=== PATIENT | male | born 1995 | race Caucasian/White ===

== ENCOUNTER 2016-12-18 20:45 | Emergency (ER) | payer BC ==
[2016-12-18] MEDS ORDERED: MAALOX/LIDO/HYOSC GI COCKTAIL 55 ML BOTTLE PO ONE (21:03)
--- NOTE | 2016-12-18 21:05 | EDPHY ---
H & P Time Seen by Provider: 12/18/16 20:57 HPI/ROS: CHIEF COMPLAINT: Epigastric pain HISTORY OF PRESENT ILLNESS: 21-year-old male presents a one-day history of epigastric pain. Onset moderate epigastric pain yesterday. The pain has been constant and is described as sharp and stabbing. No radiation of pain and no other associated symptoms. The pain is aggravated with eating. Occasional ibuprofen use. REVIEW OF SYSTEMS: Constitutional: No fever, no chills Eyes: No visual changes ENT: No sore throat Respiratory: No cough, no shortness of breath Cardiac: No chest pain Gastrointestinal: No nausea, no vomiting Genitourinary: No hematuria, no dysuria Musculoskeletal: No leg pain or swelling Skin: No rash Neurological: No headache, no weakness Psychiatric: No depression Past Medical/Surgical History: Migraine headaches Social History: No recent alcohol Smoking Status: Never smoked Physical Exam: General Appearance: Alert, pleasant Eyes: Pupils equal and round, no conjunctival pallor or injection ENT, Mouth: Mucous membranes moist Neck: Normal inspection Respiratory: Lungs are clear to auscultation Cardiovascular: Regular rate and rhythm Gastrointestinal: Abdomen is soft, epigastric tenderness Neurological: A&O, nonfocal, normal gait Skin: Warm and dry, no rash Extremities: Nontender, no pedal edema Psychiatric: Mood and affect normal Constitutional: Initial Vital Signs Temperature (C) 37 C 12/18/16 20:46 Heart Rate 75 12/18/16 20:46 Respiratory Rate 17 12/18/16 20:46 Blood Pressure 127/84 H 12/18/16 20:46 O2 Sat (%) 97 12/18/16 20:46 O2 Delivery Mode Room Air Allergies/Adverse Reactions: No Known Allergies Allergy (Unverified 12/18/16 20:46) Home Medications: Medication Instructions Recorded Hydrocodone/APAP 5/325 [Rewey 1 - 2 tab PO Q4H PRN #10 tab 12/18/16 5/325] Ondansetron Odt [Zofran Odt 4 mg 4 mg PO Q4 PRN #6 tab 12/18/16 (*)] Pantoprazole Sodium [Protonix 40mg 40 mg PO DAILY #20 tab 12/18/16 (*)] Medical Decision Making ED Course/Re-evaluation: GI cocktail given. Better after GI cocktail, but then the pain returned. Abdominal exam remains unchanged. Protonix 40 mg orally given. I will discharge him with instructions for peptic ulcer disease. He will eat a bland diet. Will follow up with primary care or GI later this week. Abdominal pain precautions given. Differential Diagnosis: Differential diagnosis includes though it is not limited to appendicitis, cholecystitis, diverticulitis, pyelonephritis, bowel perforation, small bowel obstruction. - Data Points Laboratory Results: Laboratory Results 12/18/16 21:05 12/18/16 21:05 12/18/16 21:05 WBC 7.55 10^3/uL (3.80-9.50) RBC 5.85 10^6/uL (4.40-6.38) Hgb 17.3 g/dL (13.7-17.5) Hct 50.1 % (40.0-51.0) MCV 85.6 fL (81.5-99.8) MCH 29.6 pg (27.9-34.1) MCHC 34.5 g/dL (32.4-36.7) RDW 12.7 % (11.5-15.2) Plt Count 271 10^3/uL (150-400) MPV 10.5 fL (8.7-11.7) Neut % (Auto) 50.8 % (39.3-74.2) Lymph % (Auto) 36.4 % (15.0-45.0) [place] % (Auto) 10.1 % (4.5-13.0) Eos % (Auto) 1.7 % (0.6-7.6) Baso % (Auto) 0.7 % (0.3-1.7) Nucleat RBC Rel Count 0.0 % (0.0-0.2) Absolute Neuts (auto) 3.84 10^3/uL (1.70-6.50) Absolute Lymphs (auto) 2.75 10^3/uL (1.00-3.00) Absolute Monos (auto) 0.76 10^3/uL (0.30-0.80) Absolute Eos (auto) 0.13 10^3/uL (0.03-0.40) Absolute Basos (auto) 0.05 10^3/uL (0.02-0.10) Absolute Nucleated RBC 0.00 10^3/uL (0-0.01) Immature Gran % 0.3 % (0.0-1.1) Immature Gran # 0.02 10^3/uL (0.00-0.10) Sodium 146 H mEq/L (134-144) Potassium 4.2 mEq/L (3.5-5.2) Chloride 103 mEq/L (97-110) Carbon Dioxide 28 mEq/l (22-31) Anion Gap 15 mEq/L (8-16) BUN 16 mg/dL (7-23) Creatinine 1.1 mg/dL (0.7-1.3) Estimated GFR > 60 Glucose 97 mg/dL (70-100) Calcium 10.4 mg/dL (8.5-10.4) Total Bilirubin 0.6 mg/dL (0.1-1.4) Conjugated Bilirubin 0.3 mg/dL (0.0-0.5) Unconjugated Bilirubin 0.3 mg/dL (0.0-1.1) AST 26 IU/L (17-59) ALT 30 IU/L (21-72) Alkaline Phosphatase 53 IU/L (38-126) Total Protein 7.5 g/dL (6.3-8.2) Albumin 4.7 g/dL (3.5-5.0) Lipase 111.0 IU/L (23-300) Medications Given: Discontinued Medications Miscellaneous Medication (Gi Cocktail) 45 ml PO EDNOW ONE Stop: 12/18/16 21:04 Last Admin: 12/18/16 21:11 Dose: 45 ml Departure - Departure Disposition: Home, Routine, Self-Care Clinical Impression: Acute gastritis Qualifiers: Gastritis type: other gastritis Gastritis bleeding: without bleeding Qualifier Code: (K29.00) Acute gastritis without bleeding Condition: Good Instructions: Peptic Ulcer (ED), Hydrocodone/Acetaminophen (By mouth), Ondansetron (By mouth) Additional Instructions: Take Mylanta 30 minutes before meals and at bedtime. Eat a bland diet. Avoid spicy and fatty foods. Return for worsening symptoms or any concerns. Referrals: Koko Gomez MD [Medical Doctor] - 3-4 days, if not improved Prescriptions: Hydrocodone/APAP 5/325 [Rewey 5/325] 1 - 2 tab PO Q4H PRN #10 tab PRN Reason: Pain, Moderate Pantoprazole Sodium [Protonix 40mg (*)] 40 mg PO DAILY #20 tab Ondansetron Odt [Zofran Odt 4 mg (*)] 4 mg PO Q4 PRN #6 tab PRN Reason: Nausea
[2016-12-18 21:22] LABS: % IMMATURE GRANULYOCYTES 0.3 % (0.0-1.1); ABSOLUTE IMMATURE GRANULOCYTES 0.02 10^3/uL (0.00-0.10); ADD DIFF? NO; ADD MORPH? NO; ADD SCAN? NO; ATYPICAL LYMPHOCYTE FLAG 30 (0-99); FRAGMENT RBC FLAG 10 (0-99); HEMATOCRIT 50.1 % (40.0-51.0); HEMOGLOBIN 17.3 g/dL (13.7-17.5); LEFT SHIFT FLG 0 (0-99); LIPEMIA HEMOLYSIS FLAG 90 (0-99); MEAN CELL HEMOGLOBIN 29.6 pg (27.9-34.1); MEAN CELL HEMOGLOBIN CONCENTR. 34.5 g/dL (32.4-36.7); MEAN CELL VOLUME 85.6 fL (81.5-99.8); MEAN PLATELET VOLUME 10.5 fL (8.7-11.7); PLATELET CLUMPS FLAG 10 (0-99); PLATELET COUNT 271 10^3/uL (150-400); RED BLOOD CELL COUNT 5.85 10^6/uL (4.40-6.38); RED CELL DISTRIBUTION WIDTH 12.7 % (11.5-15.2)
[2016-12-18 21:46] LABS: ALANINE AMINOTRANSFERASE 30 IU/L (21-72); ALBUMIN 4.7 g/dL (3.5-5.0); ALKALINE PHOSPHATASE 53 IU/L (38-126); ANION GAP 15 mEq/L (8-16); ASPARTATE AMINOTRANSFERASE 26 IU/L (17-59); BILIRUBIN,TOTAL 0.6 mg/dL (0.1-1.4); BILIRUBIN-CONJUGATED 0.3 mg/dL (0.0-0.5); BILIRUBIN-UNCONJUGATED 0.3 mg/dL (0.0-1.1); CALCIUM 10.4 mg/dL (8.5-10.4); CARBON DIOXIDE 28 mEq/l (22-31); CHLORIDE 103 mEq/L (97-110); CREATININE 1.1 mg/dL (0.7-1.3); GLOMERULAR FILTRATION RATE > 60; GLUCOSE 97 mg/dL (70-100); POTASSIUM 4.2 mEq/L (3.5-5.2); SODIUM 146 mEq/L (134-144); TOTAL PROTEIN 7.5 g/dL (6.3-8.2)
[2016-12-18] MEDS ORDERED: HYDROCOD/APAP 5/325 PREPACK#6 BTL TAKEHOME ONE (22:15)
[2016-12-18] MEDS ORDERED: ONDANSETRON 4MG PREPACK#2 BTL TAKEHOME ONE (22:15)
[2016-12-18 22:36] VITALS: BP 112/92; PULSE 83; RESP 18; TEMP 98.2; O2SAT 96
== END 2016-12-18 22:36 | disposition home or self-care (01) ==
DX: K29.00 Acute gastritis without bleeding (principal)

== ENCOUNTER → 2017-01-17 | Outpatient (CLI) | payer BC | LOC: BRMIMAGING 14:23 | PROVIDERS: ATTEND Physician Assistant | DX: R10.13 Epigastric pain (principal) | CPT/HCPCS: 76700-PO ==

== ENCOUNTER → 2017-01-31 | Outpatient (CLI) | payer BC, OTHER | LOC: FIMAGING 08:55 | PROVIDERS: ATTEND Physician Assistant | DX: R10.13 Epigastric pain (principal) | CPT/HCPCS: 78264; A9541 ==

== ENCOUNTER → 2017-03-08 | Outpatient (CLI) | payer BC | LOC: FIMAGING 09:36 | PROVIDERS: ATTEND Internal Medicine Gastroenterology | DX: R10.13 Epigastric pain (principal) | CPT/HCPCS: A9537 ==

== ENCOUNTER → 2017-03-22 | Outpatient (CLI) | payer BC | LOC: FIMAGING 10:35 | PROVIDERS: ATTEND Family Medicine | DX: R11.0 Nausea (principal); R42 Dizziness and giddiness; Z87.820 Personal history of traumatic brain injury; N31.9 Neuromuscular dysfunction of bladder, unspecified; H74.8X1 Other specified disorders of right middle ear and mastoid ==

== ENCOUNTER → 2017-04-18 | Outpatient (CLI) | payer BC | LOC: FIMAGING 07:23 | PROVIDERS: ATTEND Family Medicine | DX: M54.2 Cervicalgia (principal); R51 Headache; R42 Dizziness and giddiness; R11.0 Nausea; Z87.820 Personal history of traumatic brain injury ==

== ENCOUNTER → 2017-05-06 | Outpatient (CLI) | payer BC ==
[~2017-05-06] MED LIST: GADOBUTROL 10 ML VIAL IVP ONE
== END ==
LOC: FIMAGING 08:29
PROVIDERS: ATTEND Psychiatry & Neurology Neurology
DX: G44.309 Post-traumatic headache, unspecified, not intractable (principal); N31.9 Neuromuscular dysfunction of bladder, unspecified; R10.13 Epigastric pain; Q76.49 Other congenital malformations of spine, not associated with scoliosis
CPT/HCPCS: A9585

== ENCOUNTER 2017-06-11 14:03 | Emergency (ER) | payer BC ==
[2017-06-11 14:15] VITALS: RESP 16
--- NOTE | 2017-06-11 14:38 | EDPHY ---
H & P Stated Complaint: may have passed out last week/? hit head/now with clements/nausea HPI/ROS: CHIEF COMPLAINT: Fall, headache, vomiting HISTORY OF PRESENT ILLNESS: Patient complains of headache after falling down half a flight of stairs on Sunday. He slipped and fell, sliding down half a flight on a carpeted surface. He hit a wall. He is not entirely sure what happened because fall. He is mildly amnestic to events. Since that time he has had moderate to severe headache on the back of his head that radiates to the front. He also had nausea and vomiting. Some occasional visual disturbances. Severe pain even when blinking. No active vomiting at this time. No neck pain or stiffness. No numbness or tingling. No incontinence of bowel or bladder. Patient has had ongoing headaches and systematic complaints that he is being worked up for with his primary care physician, Urology and Neurology. He feels that these have been exacerbated but he is here specifically for the fall and the headache. No other associated complaints or modifying factors. REVIEW OF SYSTEMS: Ten systems reviewed and are negative unless otherwise noted in the HPI PAST MEDICAL HISTORY: Reviewed SOCIAL HISTORY: Nonsmoker. Lives here in [place]. FAMILY HISTORY: Noncontributory EXAMINATION General Appearance: Alert, no distress Head: normocephalic, atraumatic. No Mueller sign. No raccoon eyes. No hematoma Eyes: Pupils equal and round, no conjunctival pallor or injection. No nystagmus. EOMs intact. ENT, Mouth: Mucous membranes moist. Airway patent Neck: Normal inspection, supple, non-tender. No crepitus, step-off or deformity. Painless range of motion all planes Respiratory: Lungs are clear to auscultation Cardiovascular: Regular rate and rhythm. No murmur. Pulses intact distally Gastrointestinal: Abdomen is soft and nontender Back: non-tender, no bony abnormalities Neurological: GCS 15. Strength is symmetric in all 4 limbs. No pronator drift. No dysmetria. A&O, nonfocal, normal gait Skin: Warm and dry, no rash. No lacerations abrasions or contusions Extremities: Nontender, no pedal edema Psychiatric: Mood and affect normal DIFFERENTIAL DIAGNOSES: Including but not limited to post concussion, intracranial hemorrhage, subdural hematoma, epidural hematoma, contusion, edema, sprain, strain MDM: 2:35 p.m. Headache after falling down a half a flight of stairs on Sunday. He has had visual disturbances and significant pain with nausea and vomiting. He has no focal findings on examination. No neck pain or meningismus. I have ordered CT scan of the head given the mechanism the persistent of his symptoms. He is awake alert no acute distress. 3:15 p.m. Notified by radiologist Dr. Smallwood. No acute findings on the CT scan of the head from today 3:30 p.m. I have re-evaluated the patient. He is resting comfortably at this time. Still has headache but no vomiting. Remains neuro intact. Discharged patient home with symptomatic instructions. He is to follow up with primary care physician and neurologist as he is well established. He is requesting that I refill his Ambien as he ran out of it and has been unable to contact his primary care physician. The physicians out of town until tomorrow. I informed him that I will provide short course of the medication till he can follow up with her. Discharged home stable condition. Follow with existing physicians for further care. Return to ER precautions discussed. SUPERVISION: Patient was evaluated in conjunction with the supervising physician. Please see their note for details. Source: Patient, Old records Exam Limitations: No limitations - Personal History Current Tetanus/Diphtheria Vaccine: Yes - Medical/Surgical History Hx Asthma: No Hx Chronic Respiratory Disease: No Hx Diabetes: No Hx Cardiac Disease: No Hx Renal Disease: No Hx Cirrhosis: No Hx Alcoholism: No Hx HIV/AIDS: No Hx Splenectomy or Spleen Trauma: No Other PMH: ?chiari malformation - Social History Smoking Status: Never smoked Constitutional: Initial Vital Signs Temperature (C) 98.4 F 06/11/17 14:12 Heart Rate 74 06/11/17 14:12 Respiratory Rate 16 06/11/17 14:12 Blood Pressure 137/74 H 06/11/17 14:12 O2 Sat (%) 96 06/11/17 14:12 O2 Delivery Mode Room Air Allergies/Adverse Reactions: No Known Allergies Allergy (Verified 06/11/17 14:10) Home Medications: Medication Instructions Recorded Acifex 06/11/17 Ambien 06/11/17 Carafate 1 GM (*) 06/11/17 Librax (*) 06/11/17 Ondansetron Odt [Zofran Odt 4 mg 4 mg PO Q6 PRN #12 tab 06/11/17 (*)] Pantoprazole Sodium 06/11/17 Zolpidem Tartrate [Ambien 10 mg] 10 mg PO HS #5 tablet 06/11/17 Medical Decision Making - Diagnostics Imaging Results: Imaging Impressions Head CT 06/11/17 14:34 Impression: There is no acute abnormality identified on this unenhanced CT evaluation. If there is further clinical concern regarding the patient's symptoms, MR imaging is suggested, if not otherwise contraindicated. Findings were discussed with Richie Turner PA-C, at 15:14, on 06/11/2017. Departure - Departure Disposition: Home, Routine, Self-Care Clinical Impression: Closed head injury with concussion Qualifiers: Encounter type: initial encounter Loss of consciousness presence/duration: with LOC of 30 min or less Qualified Code(s): S06.0X1A - Concussion with loss of consciousness of 30 minutes or less, initial encounter Condition: Good Instructions: Head Injury (ED), Concussion (ED) Additional Instructions: 1. Medications as discussed as needed 2. Follow up with her existing primary care physician and neurologist for definitive care 3. Return here for severe headache, nausea, vomiting, neck pain or stiffness Referrals: Teresa Uribe MD [Primary Care Provider] - As per Instructions Alcides Abdi DO [Medical Doctor] - As per Instructions Prescriptions: Ondansetron Odt [Zofran Odt 4 mg (*)] 4 mg PO Q6 PRN #12 tab PRN Reason: Nausea/Vomiting, Use 1st Zolpidem Tartrate [Ambien 10 mg] 10 mg PO HS #5 tablet
[2017-06-11 15:52] VITALS: BP 133/70; PULSE 70; TEMP 97.7; O2SAT 97
== END 2017-06-11 15:52 | disposition home or self-care (01) ==
DX: S06.0X1A Concussion with loss of consciousness of 30 minutes or less, initial encounter (principal); W10.9XXA Fall (on) (from) unspecified stairs and steps, initial encounter

== ENCOUNTER → 2017-06-21 | Outpatient (CLI) | payer BC ==
--- NOTE | 2017-06-21 15:49 | CPEEG ---
[f rep st] ELECTROENCEPHALOGRAM VIDEO ELECTROENCEPHALOGRAM. DATE OF STUDY: 06/21/2017 INTERPRETATION: This 4-hour video EEG recording is essentially normal. There were no definite epileptogenic abnormalities present during the awake or sleep recordings. During the video EEG monitoring session, the patient had multiple jerk-type movements of the upper extremities and trunk. None of these events had a definite abnormal EEG correlate and were consistent with nonepileptic symptoms. REPORT: This 4-hour video EEG contains 10 Hz alpha to the posterior head regions. There was no abnormal epileptiform activation at rest, during photic stimulation, or hyperventilation. While the patient was awake and during photic stimulation, hyperventilation, and at rest, he had multiple stereotyped jerk movements, composed of very rapid myoclonic-like appearing adduction of the upper extremities and a simultaneous jerk-type movement of his torso. The EEG with these events typically showed a movement artifact over the bi- occipital leads, maximal left as the movement was starting. There was no field to this discharge, this being consistent with a movement artifact. The posterior nature of the movement artifact and asymmetry is likely due to the patient positioning with his head on the pillow. There were no definite epileptiform discharges associated with the movement that occurred multiple times. The patient went on and fell into sustained sleep during the recording. During sleep, he had no jerks, nor were there any epileptiform discharges. Sleep activity was normal and symmetric. If there is continued concern about symptoms in this patient, consideration referral to an inpatient epilepsy monitoring unit. /[id number]/MODL MTDD
== END ==
LOC: FCPNEURO 08:41
PROVIDERS: ATTEND Psychiatry & Neurology Neurology
DX: R56.9 Unspecified convulsions (principal)